=== PATIENT | male | born 1990 | race Caucasian/White ===

== ENCOUNTER 2016-09-01 20:08 | Emergency (ER) | payer OTHER ==
--- NOTE | 2016-09-07 07:37 | ER ---
ADMIT: 09/01/2016 RM/LOC: ER [facility] MR#: [id number] [id number] MCKENNABEAR WADDELL [address] [place] [id number] Emergency Room Report SEX: M AGE: 26 : 1990 DATE: 09/01/2016 ADDENDUM: This patient comes to the ER because while at work, he hit his head on the shelf and has a 1 cm laceration on the right side of his forehead right in the hairline. I placed 2 stainless steel negro to the area. He is to follow up with his primary in 5 days to remove. Please see my T-sheet. SOLA Montez / Lorenzo Henderson MD / [facility]ital JOB #: [id number] CC: Lorenzo Henderson MD, Attending Physician Patel Ardon MD, Family Physician
== END 2016-09-01 21:50 | disposition home or self-care (01) ==
LOC: ER 20:08
PROC: 0HQ0XZZ Repair Scalp Skin, External Approach (ICD-10-PCS; principal; 2016-09-01)
DX: S01.01XA Laceration without foreign body of scalp, initial encounter (principal); J45.909 Unspecified asthma, uncomplicated; F17.210 Nicotine dependence, cigarettes, uncomplicated; Z88.1 Allergy status to other antibiotic agents; W22.8XXA Striking against or struck by other objects, initial encounter; Y99.0 Civilian activity done for income or pay